=== PATIENT | male | born 1990 | race Two or more races ===

== ENCOUNTER 2019-07-25 13:20 | Emergency (ER) | payer OTHER ==
[~2019-07-25] VITALS: Ht 165.1 cm; Wt 67.1 kg
[2019-07-25] MEDS ORDERED: KETO10TA2 PO (15:33)
[2019-07-25] MEDS ORDERED: NORFLEX100MG PO (15:33)
== END 2019-07-25 15:38 | disposition home or self-care (01) ==
LOC: ER 13:20
DX: M54.5 Low back pain (principal)